=== PATIENT | male | born 1980 | race Caucasian/White ===

== ENCOUNTER → 2020-01-26 | Outpatient (CLI) | payer MEDICAID ==
[~2020-01-26] VITALS: Ht 175.3 cm; Wt 77.6 kg
[~2020-01-26] MED LIST: COPAXONE20 MG/1 ML SUBQ; GABAPENTIN800 MG ORAL; LISPRO SUBQ; ZOCOR10 MG ORAL
--- NOTE | 2020-01-26 16:44 | Consultation ---
DATE OF CONSULTATION: 01/26/2020 CONSULTING PHYSICIAN: Davy Walters MD. CHIEF COMPLAINT: Nausea, vomiting, and bloating. PAST MEDICAL HISTORY: 1. Diabetes type 1. 2. Neuropathy. 3. Hypertension. 4. History of H. pylori positive gastritis. 5. Anemia. 6. Hypercholesterolemia. PAST SURGICAL HISTORY: None. MEDICATIONS: Please see medication reconciliation list. FAMILY HISTORY: Mother had breast cancer. SOCIAL HISTORY: Patient denies any tobacco, alcohol, or drug abuse. ALLERGIES: To niacin. REVIEW OF SYSTEMS: Positive for abdominal pain, GERD, nausea, vomiting, bloating. Past endoscopy 2019. PHYSICAL EXAMINATION: VITAL SIGNS: Temperature 98.2, blood pressure is 104/81, pulse is 101, respirations 20. HEENT: Normocephalic, atraumatic. Sclerae anicteric. NECK: Supple. No evidence of obvious lymphadenopathy. CARDIOVASCULAR: Regular rate and rhythm. Plus S1-S2. LUNGS: Clear to auscultation bilaterally. ABDOMEN: Positive bowel sounds. Soft and nontender. No rebound. No guarding. No peritoneal sign. EXTREMITIES: No cyanosis. No clubbing. No edema. ASSESSMENT AND PLAN: This is a 39-year-old male with diabetes type 1 with most likely from kind of gastroparesis given his chronic nausea. According to the patient, he had a good response to Prilosec. We are going to prescribe him omeprazole 40 mg p.o. daily half an hour before breakfast. Also was given Align 1 tablet p.o. daily. Patient was educated about the need for tight blood sugar control and weight loss. Patient to come back in 2 months for followup. Davy Walters M.D. DR: COLIN JOB#: [id number] CC:
[2020-01-27 15:30] VITALS: BP 104/81
== END | disposition home or self-care (01) ==
LOC: PAN 13:44
DX: R11.2 Nausea with vomiting, unspecified (principal); R14.0 Abdominal distension (gaseous); E10.40 Type 1 diabetes mellitus with diabetic neuropathy, unspecified; I10 Essential (primary) hypertension; E78.00 Pure hypercholesterolemia, unspecified; K21.9 Gastro-esophageal reflux disease without esophagitis; R10.9 Unspecified abdominal pain

== ENCOUNTER 2020-03-29 13:57 | Outpatient (CLI) | payer MEDICAID ==
--- NOTE | 2020-03-29 14:34 | General Progress Note ---
Subjective ROS Limited/Unobtainable: Yes Allergies: Coded Allergies: NIACIN (Verified Allergy, Unknown, 01/27/20) Objective General Appearance: alert EENT: normal ENT inspection Neck: supple Cardiovascular: normal peripheral pulses Respiratory/Chest: lungs clear Abdomen: normal bowel sounds, non tender, soft Extremities: non-tender Assessment/Plan Assessment/Plan: 1. Diabetes type 1. 2. Neuropathy. 3. Hypertension. 4. History of H. pylori positive gastritis. 5. Anemia. 6. Hypercholesterolemia. good response to Align [facility] prn Davy Walters MD Mar 29, 2020 14:34
== END 2020-03-29 15:57 | disposition home or self-care (01) ==
LOC: PAN 13:57
DX: D64.9 Anemia, unspecified (principal); E10.40 Type 1 diabetes mellitus with diabetic neuropathy, unspecified; I10 Essential (primary) hypertension; E78.00 Pure hypercholesterolemia, unspecified
CPT/HCPCS: 99212